=== PATIENT | female | born 1945 | race Caucasian/White ===

== ENCOUNTER → 2016-09-19 16:17 | Outpatient (CLI) | payer MEDICARE, OTHER ==
[2014-05-24 22:53] VITALS: BMI 28.4
[~2016-09-19 16:17] MED LIST: AMBIEN CR12.5 MG/BO PO; AMBIEN5 MG PO; CALCIUM 500 + D1 TAB PO; CYMBALTA60 MG PO; ECOTRIN325 MG PO; EZFE 200200 MG PO; HCTZ25 MG PO; MELATONIN 3 MG1 TAB PO; NEURONTIN 300300 MG PO; NORVASC5 MG PO; PLAVIX75 MG PO; PREMPRO 0.3 MG-1 TAB PO; REQUIP0.5 MG PO; TIAZAC/CARDIZE120 MG PO; TYLENOL #4 W/CO1 TAB PO; VITAMIN D31000 UNIT PO
== END | disposition home or self-care (01) ==
LOC: D.MRI 09-18 16:30
DX: M54.5 Low back pain (principal)

== ENCOUNTER 2016-10-06 09:23 | Day surgery (SDC) | payer MEDICARE, OTHER ==
[~2016-10-06] VITALS: Ht 160 cm; Wt 65.8 kg
[~2016-10-06 09:23] MED LIST changes: -CALCIUM 500 + D1 TAB PO; -EZFE 200200 MG PO; -MELATONIN 3 MG1 TAB PO; -TIAZAC/CARDIZE120 MG PO; -TYLENOL #4 W/CO1 TAB PO; -VITAMIN D31000 UNIT PO
[2016-10-06 10:39] LABS: BASOPHILS 0.4 % (0.0-2.0); EOSINOPHILS 2.2 % (0-7); HEMATOCRIT 38.4 % (36.0-48.0); HEMOGLOBIN 12.7 g/dL (12-16); IMMATURE GRANULOCYTES 0.1 % (0-5); LYMPHOCYTES 24.6 % (15-50); MCH 29.6 pg (26.0-34.0); MCHC 33.1 g/dL (31.0-37.0); MCV 89.5 fL (80.0-100.0); MEAN PLATELET VOLUME 11.6 fL (7.4-10.4); MONOCYTES 8.7 % (2-11); RBC 4.29 10x6/uL (4.00-5.40); RDW 13.1 % (11.5-14.5); WBC 6.7 10x3/uL (4.8-10.8)
[2016-10-06 10:41] LABS: ANION GAP 11.6 mmol/L (8-16); CALCIUM 9.1 mg/dL (8.5-10.1); CARBON DIOXIDE 29.6 mmol/L (21.0-32.0); CREATININE - SERUM 0.9 mg/dL (0.6-1.3); POTASSIUM - SERUM 4.2 mmol/L (3.5-5.1)
[2016-10-06 10:48] LABS: PLATELET COUNT 195 10x3/uL (130-400)
[2016-10-06] MEDS ORDERED: TIAZAC/CARDIZE120 MG PO (11:07)
[2016-10-06] MEDS ORDERED: TYLENOL #4 W/CO1 TAB PO (11:08)
[2016-10-06] MEDS ORDERED: MELATONIN 3 MG1 TAB PO (11:08)
[2016-10-06] MEDS ORDERED: EZFE 200200 MG PO (11:09)
[2016-10-06] MEDS ORDERED: CALCIUM 500 + D1 TAB PO (11:09)
[2016-10-06] MEDS ORDERED: VITAMIN D31000 UNIT PO (11:10)
[2016-10-06 11:45] VITALS: BP 139/68; Ht 160 cm; Wt 65.8 kg
--- NOTE | 2016-10-06 11:56 | NUR ---
1100--DR HENDERSON AT BEDSIDE, MRI AND H&P REVIEWED, NEW ORDER RECIEVED. SAGE RN
[2016-10-06 12:03] LABS: APPEARANCE CLOUDY (CLEAR); BILIRUBIN NEGATIVE (NEGATIVE); COLOR YELLOW (YELLOW); GLUCOSE NEGATIVE (NEGATIVE); KETONE NEGATIVE (NEGATIVE); NITRITE POSITIVE (NEGATIVE); PROTEIN NEGATIVE (NEGATIVE); SPECIFIC GRAVITY 1.015 (1.005-1.020); UROBILINOGEN NORMAL (NORMAL)
[2016-10-06 12:04] LABS: LEUKOCYTE ESTERASE 1+ (NEGATIVE)
[2016-10-06 12:05] LABS: BACTERIA MANY /hpf (NONE SEEN); EPITHELIAL CELLS 0-5 /hpf (0-5); MUCUS <1+ /lpf (NONE SEEN)
--- NOTE | 2016-10-06 15:15 | NUR ---
PATIENT POSITIONED ON GEL ROLLS ALL AREAS CHECKED FOR ANY IMPINGEMENT HEAD IN PRONE PILLOW DEVICE, SAFETY MEASURES TAKEN PRESSURE POINTS PADDED AND SECURED, PILLOWS UNDER LEGS AND FEET, ROSALIORJIM.
--- NOTE | 2016-10-06 16:07 | NUR ---
NO NUMBNESS OR TINGLING IN LOWER EXTREMETIES EQUAL STRENGTH BILATERALLY
--- NOTE | 2016-11-03 10:57 | OP ---
PATIENT NAME: MATIAS CRANDALL MEDICAL RECORD: [id number] :43 LOCATION:[facility] ADMISSION DATE: SURGEON: ISAAC HENDERSON MD DATE OF OPERATION: 10/06/2016 DIAGNOSIS: L4-L5 left nerve root compression secondary to facet hypertrophy. SURGEON: Isaac Henderson MD ESTIMATED BLOOD LOSS: 50 cc. PROCEDURE: L4-L5 left laminotomy and foraminotomy plus discectomy. SUMMARY: The patient was taken to the operating room and after an adequate level of general anesthetic, was prepped and draped in the usual aseptic manner. An incision was made to the left of the spinous processes of L4-L5 with a 10 blade after infiltrating with 1:400,000 epinephrine and 0.5% lidocaine. Dissection was carried out down to the lumbodorsal fascia. Further dissection was carried out with Metzenbaum scissors down to the interlaminar space on the left. METRx operating channel was introduced over the interlaminar space. Using a 1.8 cm operating channel and attaching the 5 cm long channel to a retractor martinez attached to the operating table. Following this, the medial aspect of the facet joint was exposed after removing some soft tissue deep with the pituitary and then a Midas Oral drill was used to remove the medial aspect of the facet joint. This exposed the ligamentum flavum, which was further exposed by removing the lamina from L4 and L5 on the left and then splitting the ligamentum flavum and removing it, exposing the neural involvement. The exiting nerve root was compressed in the neural foramen, therefore Kerrison punch was used to decompress the nerve root. Dissection was then carried out beneath the exiting and traversing nerve root and a herniated disc fragment was identified beneath the posterior longitudinal ligament. An incision was made in the ligament and then disc material was removed piecemeal thoroughly further decompressing the spinal canal eventually. When this was completed, the wound was irrigated with an antibiotic solution and then closure was carried out with 2-0 Dexon on the fascia, 3-0 Dexon on the subcutaneous tissue and a subcuticular stitch with 4-0 Dexon on the skin. The patient tolerated the procedure well and was taken to recovery in stable condition. TRANSINT:[id number] Voice Confirmation ID: [id number] DOCUMENT ID: [id number] ISAAC HENDERSON MD at 1057 CC: [id number] DICTATION DATE: 10/09/16 0745 FIBER PRODUCT CUTTING MACHINE OPERATOR: 10/09/16 1336 [facility] 10/06/16 [place] [place] [address]
== END 2016-10-06 18:20 | disposition home or self-care (01) ==
LOC: D.OPS 09:23 → D.PAN 12:00 → D.OPS 12:00
PROVIDERS: Neurological Surgery
DX: G54.4 Lumbosacral root disorders, not elsewhere classified (principal); M79.605 Pain in left leg; M48.06 Spinal stenosis, lumbar region; I25.10 Atherosclerotic heart disease of native coronary artery without angina pectoris; I10 Essential (primary) hypertension; Z95.5 Presence of coronary angioplasty implant and graft

== ENCOUNTER 2017-01-20 08:29 | Outpatient (CLI) | payer MEDICARE, OTHER ==
[2016-10-06 11:45] VITALS: BMI 25.7
[~2017-01-20 08:29] MED LIST changes: +CALCIUM 500 + D1 TAB PO; +EZFE 200200 MG PO; +MELATONIN 3 MG1 TAB PO; +TIAZAC/CARDIZE120 MG PO; +TYLENOL #4 W/CO1 TAB PO; +VITAMIN D31000 UNIT PO
== END 2017-01-20 11:17 ==
LOC: D.MAMMO 08:29
DX: Z12.31 Encounter for screening mammogram for malignant neoplasm of breast (principal)

== ENCOUNTER → 2017-02-13 08:31 | Outpatient (CLI) | payer MEDICARE, OTHER ==
[2016-10-06 11:45] VITALS: BMI 25.7
== END | disposition home or self-care (01) ==
LOC: D.MRI 08:00
DX: M54.12 Radiculopathy, cervical region (principal)

== ENCOUNTER 2017-04-07 23:13 | Observation (INO) | payer MEDICARE, OTHER ==
[~2017-04-07] VITALS: Ht 160 cm; Wt 68.2 kg
--- NOTE | ~2017-04-07 | HEMODYNAMI ---
PATIENT:MATIAS CRANDALL MEDICAL RECORD: [id number] : 43 LOCATION:[facility] [address] [id number] ADMISSION DATE: 04/08/17 Generatedon:04/08/201711:41 Patient name: MATIAS CRANDALL Patient #: [id number] SSN: : 1945 Date of study: 04/08/2017 Page: Of Hemodynamic Procedure Report Patient Data Patient Demographics Procedure consent was obtained First Name: MATIAS Gender: Female Last Name: KARLEY : 1945 Middle Initial: M Age: 71 year(s) Patient #: [id number] Race: Unknown Additional ID: [id number] Contact details [address]: [address] [place] [address] TRAIL State: [place] City: [place] Zip code: [address] Past Medical History Allergies: No known allergies Admission Admission Data Admission Date: 04/08/2017 Admission Time: 1:07 Admit Source: Other Room #: D[facility] Lab Results Lab Result Date: 04/07/2017 Lab Result Time: 23:33 Biochemistry Name Units Result Min Max BUN mg/dl 18 --(---*)-- 7 18 Creatinine mg/dl 1.1 --(--*-)-- 0.6 1.3 CBC Name Units Result Min Max Hematocrit % 37.5 *-(----)-- 42 54 Hemoglobin g/dl 12.6 -*(----)-- 13.5 17.5 Procedure Procedure Types Cath Procedure Diagnostic Procedure LHC LHC w/Coronaries Miscellaneous Procedures Moderate Sedation up to 15 minutes Procedure Description Procedure Date Procedure Date: 04/08/2017 Procedure Start Time: 11:31 Procedure End Time: 11:39 Procedure Staff Name Function Nomi Contreras MD Performing Physician Kacy Boateng RT Scrub Adolfo Vallecillo RN Nurse Fredrick Sifuentes RT Monitor Procedure Data Cath Procedure Fluoroscopy Diagnostic fluoroscopy Total fluoroscopy Time: 1.3 time: 1.3 min min Diagnostic fluoroscopy Total fluoroscopy dose: 222 dose: 222 mGy mGy Contrast Material Contrast Material Type Amount (ml) Isovue 300 52 Entry Location Entry Primary Successful Side Size Upsize Upsize Entry Closure Marinelli ccessful Closure Location (Fr) 1 (Fr) 2 (Fr) Remarks Device Remarks Radial Right 6 Fr Mechanical artery Short Compression Estimated blood loss: 5 ml Diagnostic catheters Device Type Used For End Catheter Placement Diagnostic Terumo 5Fr Procedure Glasgow 110cm catheter Procedure Complications No complications Procedure Medications Medication Administration Route Dosage Oxygen NC 2 l/min Heparin Flush Bag added to field 2 bags (1000units/500ml NS) 0.9% NaCl I.V. 100 ml/hr Radial Cocktail added to field 1 syringe (Verapomil 2mg/Nitro 400mcg/Heparin 1500units) Fentanyl I.V. 50 mcg Versed I.V. 1 mg Fentanyl I.V. 50 mcg Versed I.V. 1 mg Fentanyl I.V. 50 mcg Fentanyl I.V. 50 mcg Radial Cocktail I.A. 1 syringe (Verapomil 2mg/Nitro 400mcg/Heparin 1500units) Hemodynamics Rest HGB: 12.6 (g/dl) Heart Rate: 78 (bpm) Snapshots Pre Cath Intra NCS Post Cath Vital Signs Time Heart Resp SPO2 NIBP (mmHg) Rhythm Pain Sedation Rate (ipm) (%) Status Level (bpm) 11:05:25 75 17 98 151/75(116) NSR 0 (11) 10(A) , No pain 11:09:43 86 18 97 159/82(128) NSR 0 (11) 10(A) , No pain 11:13:59 77 18 98 153/81(116) NSR 0 (11) 10(A) , No pain 11:18:21 77 17 98 153/77(120) NSR 0 (11) 10(A) , No pain 11:22:37 76 18 97 147/75(112) NSR 0 (11) 10(A) , No pain 11:26:51 77 17 98 144/83(110) NSR 0 (11) 10(A) , No pain 11:31:05 73 19 98 132/78(123) NSR 0 (11) 9(A) , No pain 11:35:17 95 17 97 136/79(122) NSR 0 (11) 9(A) , No pain 11:38:56 93 10 98 153/82(125) NSR 0 (11) 10(A) , No pain Medications Time Medication Route Dose Verified Delivered Reason Notes Effectiveness by by 11:06:16 Oxygen NC 2 l/min Adolfo Mata Per Avel Vallecillo RN physician RN 11:06:56 Heparin Flush added 2 bags Adolfo Mata used for Bag to Avel Vallecillo RN procedure (1000units/500ml field RN NS) 11:07:14 0.9% NaCl I.V. 100 Adolfo Adolfo Per ml/hr Avel Vallecillo RN physician RN 11:22:46 Radial Cocktail added 1 Adolfo Mata used for (Verapomil to syringe Avel Vallecillo RN procedure 2mg/Nitro field RN 400mcg/Heparin 1500units) 11:26:58 Fentanyl I.V. 50 mcg Adolfo Mata for sedation Avel Vallecillo RN RN 11:27:06 Versed I.V. 1 mg Adolfo Mata for sedation Avel Vallecillo RN RN 11:29:36 Fentanyl I.V. 50 mcg Adolfo Mata for sedation Avel Vallecillo RN RN 11:29:43 Versed I.V. 1 mg Adolfo Mata for sedation Avel Vallecillo RN RN 11:31:36 Fentanyl I.V. 50 mcg Adolfo Mata for sedation Avel Vallecillo RN RN 11:31:56 Radial Cocktail I.A. 1 Adolfo Eliserey for (Verapomil syringe Avel Contreras MD vasodilation 2mg/Nitro RN 400mcg/Heparin 1500units) 11:33:04 Fentanyl I.V. 50 mcg Adolfo Mata for sedation Avel Vallecillo RN hydraulic corrugating machine operator Log Time Note 10:45:36 Fredrick Sifuentes RT(R) sent for patient. Start room use. 11:04:11 Vital chart was started 11:04:17 Informed consent obtained and on chart 11:04:21 Admit Source: Other 11:04:34 Diagnostic Cath status Elective 11:04:43 Time tracking: Regular hours 11:04:46 Plan of Care:Hemodynamics will remain stable., Cardiac rhythm will remain stable., Comfort level will be maintained., Respiratory function will remain adequate., Patient/ family verbilizes understanding of procedure., Procedure tolerated without complication., Recovers from procedure without complications.. 11:04:50 Patient received from Med II to CCL 2 Alert and oriented. Tansferred to table in Supine position. 11:04:51 Warm blankets applied, and rupali hugger turned on for patient comfort. 11:04:51 Correct patient and procedure confirmed by team. 11:04:52 ECG and BP/O2 sat monitors applied to patient. 11:04:55 Baseline sample Acquired. 11:04:58 Rhythm: sinus rhythm 11:05:04 H&P Date Dictated: 04/07/2017 Within 30 days and on chart.. 11:05:05 Pre-procedure instructions explained to patient. 11:05:05 Pre-op teaching completed and patient verbalized understanding. 11:05:06 Family in patients room. 11:05:08 Patient NPO since Midnight. 11:05:11 Patient allergic to No known allergies 11:05:13 Is the patient allergic to Iodine/contrast media? No. 11:05:15 Is patient on blood thinner?Yes 11:05:17 ACC The patient was administered the following blood thiners within the last 24 hours: ACCPlavix 11:05:19 Patient diabetic? No. 11:05:21 Previous problem with sedation/anesthesia? No ? 11:05:22 Snore? No 11:05:23 Sleep apnea? No 11:05:24 Deviated septum? No 11:05:24 Opens mouth fully? Yes 11:05:25 Sticks out tongue? Yes 11:05:26 Airway obstruction? No ? 11:05:29 Dentures? Yes In tight 11:05:31 Modified Norman's test Ulnar < 7 seconds 11:05:33 Patient pain scale 0/10 ?. 11:05:38 IV patent on arrival in left hand with 0.9% NaCl at O. 11:06:16 Oxygen 2 l/min NC was administered by Adolfo Vallecillo RN; Per physician; 11:06:56 Heparin Flush Bag (1000units/500ml NS) 2 bags added to field was administered by Adolfo Vallecillo RN; used for procedure; 11:07:14 0.9% NaCl 100 ml/hr I.V. was administered by Adolfo Vallecillo RN; Per physician; 11::43 Lab Result : BUN 18 mg/dl 11::43 Lab Result : Creatinine 1.1 mg/dl 11::43 Lab Result : Hemoglobin 12.6 g/dl ::43 Lab Result : Hematocrit 37.5 % 11::46 Lab results completed and on chart. 11:11:48 Right Radial & Right Groin area was prepped with chlora-prep and draped in sterile fashion 11::49 Alarms reviewed by R. N. 11::49 Sharps counted by scrub and verified by R.N. 11:11:53 Use device set Radial Dx 11:11:54 Acist Manifold opened to sterile field. 11:11:55 Acist Hand Control opened to sterile field. 11:11:56 Acist Syringe opened to sterile field. 11:11:56 Medline Cath Pack opened to sterile field. 11:11:57 Bag Decanter opened to sterile field. 11:11:57 Terumo 6Fr Slender Glidesheath opened to sterile field. 11:11:58 St Garland 260cm J .035 wire opened to sterile field. 11:11:58 Tegaderm 4 x 4 opened to sterile field. 11:21:40 Baseline sample Acquired. 11::32 Zero performed for pressure channel P1 11::46 Radial Cocktail (Verapomil 2mg/Nitro 400mcg/Heparin 1500units) 1 syringe added to field was administered by Adolfo Vallecillo RN; used for procedure; 11:24:26 MBrace Wrist Support opened to sterile field. 11:26:31 Physician arrived 11::31 --------ALL STOP TIME OUT------ 11::32 Final Timeout: patient, procedure, and site verified with staff and physician. All members of the team are in agreement. 11::34 Right Radial & Right Groin site verified by team. 11::36 Physical assessment completed. ASA score P 2 - A patient with mild systemic disease as per Nomi Contreras MD. 11:26:38 Sedation plan: IV Moderate Sedation Versed, Fentanyl 11::58 Fentanyl 50 mcg I.V. was administered by Adolfo Vallecillo RN; for sedation; 11:27:06 Versed 1 mg I.V. was administered by Adolfo Vallecillo RN; for sedation; :36 Fentanyl 50 mcg I.V. was administered by Adolfo Vallecillo RN; for sedation; 11::43 Versed 1 mg I.V. was administered by Adolfo Vallecillo RN; for sedation; ::36 Fentanyl 50 mcg I.V. was administered by Adolfo Vallecillo RN; for sedation; : Procedure started. : Full Disclosure recording started 11::45 Local anesthetic to right radial artery with Lidocaine 2% by Nomi Contreras MD.INITIAL ACCESS ONLY 11::54 A 6 Fr Short sheath was inserted into the Right Radial artery 11::56 Radial Cocktail (Verapomil 2mg/Nitro 400mcg/Heparin 1500units) 1 syringe I.A. was administered by Nomi Contreras MD; for vasodilation; 11::04 Fentanyl 50 mcg I.V. was administered by Adolfo Vallecillo RN; for sedation; 11::44 A Diagnostic GTIumo 5Fr Glasgow 110cm catheter was advanced over the wire and used for Procedure. 11:33:46 LV gram done using ALVES 11::49 Injector settings: Ml/sec: 5, Volume: 15, 11:33:56 EF : 50 % 11:34:12 LCA angiography performed. 11:35:17 RCA angiography performed. 11:35:44 Catheter removed. 11:35:49 Terumo TR Band Standard opened to sterile field. 11:35:56 Sheath removed intact; hemostasis achieved with Mechanical Compression to the Right Radial artery. 11:35:57 Procedure ended.(Physican Out) 11:36:02 Fluoroscopy time 01.30 minutes. 11:36:06 Flurop Dose total: 222 11:36:06 Fluoroscopy dose: 222 mGy 11:36:08 Contrast amount:Isovue 300 52ml. 11:37:23 Sharps counted by scrub and verified by R.N. 11:37:51 TR band inflated with 10cc of air. 11:37:52 Insertion/operative site no bleeding no hematoma. 11:37:59 Post right radial artery:stable, soft, clean and dry 11:38:01 Post Procedure Pulses reassessed and unchanged 11:38:03 Post-procedure physical assessment completed. ASA score P 2 - A patient with mild systemic disease as per Nomi Contreras MD. 11:38:04 Post procedure rhythm: unchanged. 11:38:06 Post procedure instruction explained to patient.Patient verbalizes understanding. 11:38:09 Estimated blood loss: 5 ml 11:38:17 Patient needs reinforcement of post procedure teaching. 11:38:27 Procedure type changed to Cath procedure, Diagnostic procedure, LHC, LHC w/Coronaries, Miscellaneous Procedures, Moderate Sedation up to 15 minutes 11:39:29 Procedure Complication : No complications 11:39:30 Vital chart was stopped 11:39:30 See physician's report for complete and final results. 11:39:32 Report given to PCU. 11:39:35 Patient transfered to PCU with Stretcher. 11:39:37 Procedure ended. 11:39:37 Full Disclosure recording stopped 11:39:40 End room use (Document Last) Device Usage Item Name Manufacture Quantity Catalog Hospital Part Current Minimal Lot# / Number Charge Number Stock Stock Serial# Code Acist Acist 1 [id number] [id number] 026368 070308 5 Manifold [employer] Inc Acist Hand Acist 1 24135 486918 013489 672139 5 Control [employer] Inc Acist Acist 1 39636 933706 894604 783509 20 Syringe Medical Systems Inc Medline Cardinal 1 [id number] 50149 099339 5 Cath Pack Health Bag Microtek 1 2002S 009498 13905 494153 5 Decanter Medical Inc. Terumo 6Fr Terumo 1 [id number] 469496 140443 259967 [address] St Garland 1 [id number] 416433 226421 016504 30 260cm J .035 wire Tegaderm 4 3M 1 1626W 308409 356421 768559 5 x 4 MBrace Advanced 1 140-0250-00 218011 27007 041590 5 Wrist Vascular Support Dynamics Diagnostic Terumo 1 66-8720 601637 225654 184561 5 Terumo 5Fr Glasgow 110cm catheter Terumo TR Terumo 1 [id number] 387493 710225 708620 40 Band Standard Signature Audit Cades Stage Time Signature Unsigned Intra-Procedure 04/08/2017 Fredrick Sifuentes 11:41:18 AM RT(R) Signatures Monitor : Fredrick Sifuentes RT Signature : Date : Time : [place] [address] [place] [address]
--- NOTE | ~2017-04-07 | HP ---
PATIENT: MATIAS CRANDALL MEDICAL RECORD: [id number] ACCOUNT: [id number] LOCATION:[address] : 43 ADMISSION DATE: 04/08/17 HISTORY AND PHYSICAL EXAMINATION ADMITTING DIAGNOSES: 1. Unstable angina. 2. Coronary artery disease. 3. Previous PTCA stent in 2013. 4. Upcoming back surgery. 5. Chronic back pain. 6. Hypertension. HISTORY OF PRESENT ILLNESS: This is a female who presents with unstable anginal symptomatology times 2 days, just like that of her previous angina. She does have a past history of coronary artery disease, previous PTCA stent in 2013. Her troponin is normal. PHYSICAL EXAMINATION: GENERAL APPEARANCE: Well-nourished, well-developed, appears stated age. Level of distress, comfortable. PSYCHIATRIC: Mental status, alert, normal affect. Orientation, oriented to time, place and person. EYES: Lids and conjunctiva, noninjected. No discharge, no pallor. ENT: Lips, teeth, gums, normal dentition. Oropharynx, no cyanosis, no pallor. NECK: Carotid arteries, bilateral normal upstroke, no bruits, no thrills. JUGULAR VEINS: No jugular venous pressure or distention. CERVICAL LYMPH NODES: Nontender, nonenlarged. THYROID: Not enlarged. Nontender. No nodules. LUNGS: Respiratory effort, unlabored. CHEST: Normal curvature. No thoracic deformity. No chest wall tenderness. Percussion, resonant. Auscultation, clear. No wheezes, no rales, no rhonchi. CARDIOVASCULAR: Precordial exam, nondisplaced. No heaves or pericardial thrills. Rate and rhythm, regular. Heart sounds, normal S1, normal S2. No S3, no gallop, no rub. Systolic murmur, not heard. Diastolic murmur, not heard. EXTREMITIES: No cyanosis, no edema. Peripheral pulses, full and equal in all extremities, except as noted. No bruits appreciated. ABDOMEN: Soft, nondistended. Normal aorta. No bruit. Nontender. No masses. Liver, nontender, no hepatomegaly. Spleen, nontender, no splenomegaly. MUSCULOSKELETAL: No joint tenderness. No joint swelling. No erythema. NEUROLOGICAL: Normal gait, normal strength, normal tone. SKIN: Warm and dry. REVIEW OF SYSTEMS: The patient reports easy bruising but reports no swollen glands. The patient reports no fever, no night sweats, no significant weight gain, no significant weight loss. No significant exercise tolerance. The patient reports no dry eyes, no irritation, no vision change. Patient reports no difficulty hearing and no ear pain. Patient reports no frequent nose bleeds or nose and sinus problems. Patient reports on arm pain on exertion. No shortness of breath while lying down. No history of heart murmur. Patient reports no cough, no wheezing or coughing up blood. Patient reports no abdominal pain, no vomiting. Normal appetite. No diarrhea and not vomiting blood. No nausea and no constipation. Patient reports no incontinence. No difficulty urinating. No hematuria. No increased frequency. Patient reports no muscle aches. No weakness, no arthralgias, no back pain. No swelling of the HISTORY AND PHYSICAL [id number] MATIAS CRANDALL extremities. Patient reports no abnormal mole, no jaundice, no rashes. Reports no loss of consciousness. No weakness and no numbness. No seizures, dizziness, or headaches. The patient reports no depression, no sleep disturbance, feeling safe in a relationship and no alcohol abuse. Patient reports on fatigue. Reports no runny nose or sinus pressure. No itching, no hives, and no frequent sneezing. OVERALL IMPRESSION: Chest pain compatible with angina, most likely she has recurrent hemodynamically significant coronary artery disease. We will proceed with coronary angiography. Further care depends upon findings of the angiography. TRANSINT:[id number] Voice Confirmation ID: [id number] DOCUMENT ID: [id number] RODOLFO SCOTT MD CC: [id number] DICTATION DATE: 04/08/17 0947 CAR VARNISHER: 04/08/17 1043 [facility] [place] [address] [place] [address]
--- NOTE | ~2017-04-07 | OP ---
PATIENT NAME: MATIAS CRANDALL MEDICAL RECORD: [id number] :43 LOCATION:D.M2 [address].2117 ADMISSION DATE:04/08/17 SURGEON: RODOLFO SCOTT MD DATE OF OPERATION: 04/08/2017 PROCEDURES: 1. Left heart catheterization. 2. Selective coronary angiography. 3. Left ventriculogram. INDICATION: Chest pain compatible with angina. PROCEDURE IN DETAIL: After informed consent was obtained and after detailed explanation of risks, benefits as well as alternative therapies, the patient elected to proceed with angiogram and heart catheterization. The right radial area was prepped and draped in normal sterile fashion. Right radial artery was cannulated via modified Seldinger technique with placement of 6-Luxembourgish sheath. All catheters exchanged through this sheath. FINDINGS: The left ventriculogram was performed in standard 30-degree ALVES view, reveals good cardiac wall motion throughout all segments. Overall ejection fraction estimated 60%. SELECTIVE CORONARY ANGIOGRAPHY: 1. Left main showed no significant angiographic disease. 2. Left anterior descending has previously placed stent. This is widely patent with no significant restenosis. No disease elsewise at the LAD or its branches. 3. Left circumflex has mild irregularities, but no flow-limiting stenosis. 4. Right coronary has mild irregularities, but no flow-limiting stenosis. OVERALL IMPRESSION: No significant restenosis of the previously placed stent in the LAD. No disease elsewise. Continue medical management of the coronary artery disease and cardiac risk factors. TRANSINT:[id number] Voice Confirmation ID: [id number] DOCUMENT ID: [id number] RODOLFO SCOTT MD CC: [id number] DICTATION DATE: 04/08/17 1143 FIREBREAK CUTTER: 04/08/17 1453 DIS IN 04/08/17 [facility] [address] [place] [id number]
[2017-04-08 00:07] LABS: ALBUMIN 3.5 g/dL (3.4-5.0); ALKALINE PHOSPHATASE 88 U/L (46-116); ALT (SGPT) 26 U/L (10-68); BASOPHILS 0.3 % (0-2); BILIRUBIN - TOTAL 0.28 mg/dL (0.2-1.3); CALC OSMOLALITY 280 mosm/kg (275-300); CALCIUM 9.2 mg/dL (8.5-10.1); CARBON DIOXIDE 29.4 mmol/L (21.0-32.0); CHLORIDE - SERUM 104 mmol/L (98-107); CREATININE - SERUM 1.1 mg/dL (0.6-1.3); GLUCOSE 93 mg/dL (74-106); HEMATOCRIT 37.5 % (36.0-48.0); HEMOGLOBIN 12.6 g/dL (12-16); IMMATURE GRANULOCYTES 0.3 % (0-5); LYMPHOCYTES 28.6 % (15-50); MCH 30.6 pg (26.0-34.0); MCHC 33.6 g/dL (31.0-37.0); MEAN PLATELET VOLUME 10.7 fL (7.4-10.4); MONOCYTES 11.8 % (2-11); PROTEIN - SERUM 6.9 g/dL (6.4-8.2); RBC 4.12 10x6/uL (4.00-5.40); RDW 13.2 % (11.5-14.5); SODIUM 140 mmol/L (136-145); UREA NITROGEN 18 mg/dL (7-18); WBC 9.7 10x3/uL (4.8-10.8); eGFR NON AFRICAN AMERICAN 52 mL/min (90-120)
[2017-04-08 00:08] LABS: PLATELET COUNT 238 10x3/uL (130-400)
[2017-04-08 00:18] LABS: CHOL - HDL RATIO 2.5 ratio (2.3-4.1); CHOLESTEROL, TOTAL 159 mg/dL (0-200); CKMB 0.9 U/L (0.0-3.6); CREATINE KINASE 56 UL (21-215); HDL CHOLESTEROL 65 mg/dL (32-96); LDL CHOLESTEROL 69 mg/dL (0-100); LDL-HDL RATIO 1.1 ratio (1.5-3.5); TRIGLYCERIDE 125 mg/dL (30-200)
[2017-04-08 00:20] LABS: TROPONIN-I < 0.017 ng/mL (0.000-0.060)
[2017-04-08 04:55] VITALS: BP 148/72; Ht 160 cm; Wt 68.2 kg
[2017-04-08 05:58] LABS: CREATINE KINASE 54 UL (21-215); TROPONIN-I < 0.017 ng/mL (0.000-0.060)
[2017-04-08 08:00] VITALS: BP 129/61
--- NOTE | 2017-04-08 10:52 | NUR ---
PRE-OPS GIVEN. TO MANAGER MED SURG BY BED.
--- NOTE | 2017-04-08 12:03 | NUR ---
BACK FROM CHAR BELT OPERATOR. VS WNL. RIGHT WRIST STABLE WITH TR BAND INTACT. WILL MONITOR.
--- NOTE | 2017-04-08 13:50 | NUR ---
TR BAND DCD WITHOUT BLEEDING OR HEMATMOA NOTED.
--- NOTE | 2017-04-08 14:29 | NUR ---
IV AND TELEMETRY DCD. DC PLANS GIVEN. UNDERSTANDING VOICED. ESCORTED TO CAR BY W/C.
== END 2017-04-08 14:30 | disposition home or self-care (01) ==
LOC: D.ER 23:13 → D.M2 04-08 01:07 → OBSVTIME 04-08 01:07 → D.M2 04-08 01:07
PROVIDERS: Family Medicine; ADMIT Emergency Medicine
DX: I25.110 Atherosclerotic heart disease of native coronary artery with unstable angina pectoris (principal); Z95.5 Presence of coronary angioplasty implant and graft; I10 Essential (primary) hypertension; G89.29 Other chronic pain; M54.9 Dorsalgia, unspecified

== ENCOUNTER → 2017-07-06 14:37 | Outpatient (CLI) | payer MEDICARE, OTHER ==
[2017-04-08 04:55] VITALS: BMI 26.6
== END | disposition home or self-care (01) ==
LOC: D.RAD 14:37
DX: J32.9 Chronic sinusitis, unspecified (principal)

== ENCOUNTER → 2018-05-05 11:09 | Outpatient (CLI) | payer MEDICARE, OTHER ==
[2017-04-08 04:55] VITALS: BMI 26.6
== END | disposition home or self-care (01) ==
LOC: D.US 11:09
DX: I70.219 Atherosclerosis of native arteries of extremities with intermittent claudication, unspecified extremity (principal)

== ENCOUNTER 2018-11-04 18:19 | Outpatient (CLI) | payer MEDICARE, OTHER ==
[2017-04-08 04:55] VITALS: BMI 26.6
== END 2018-11-04 18:21 | disposition home or self-care (01) ==
LOC: D.MAMMO 18:19
PROVIDERS: ATTEND Emergency Medicine
DX: Z12.31 Encounter for screening mammogram for malignant neoplasm of breast (principal)

== ENCOUNTER 2018-11-29 15:00 | Outpatient (CLI) | payer MEDICARE, OTHER ==
[2017-04-08 04:55] VITALS: BMI 26.6
== END 2018-11-29 16:00 | disposition home or self-care (01) ==
LOC: D.MAMMO 15:00
PROVIDERS: ATTEND Emergency Medicine
DX: R92.8 Other abnormal and inconclusive findings on diagnostic imaging of breast (principal)

== ENCOUNTER 2019-06-02 10:00 | Outpatient (CLI) | payer MEDICARE, OTHER ==
[2017-04-08 04:55] VITALS: BMI 26.6
== END 2019-06-02 11:00 | disposition home or self-care (01) ==
LOC: D.MAMMO 10:00
PROVIDERS: ATTEND Emergency Medicine
DX: R92.8 Other abnormal and inconclusive findings on diagnostic imaging of breast (principal)

== ENCOUNTER → 2019-11-08 18:33 | Outpatient (CLI) | payer MEDICARE, OTHER ==
[2017-04-08 04:55] VITALS: BMI 26.6
== END | disposition home or self-care (01) ==
LOC: D.MAMMO 10:45
PROVIDERS: ATTEND Emergency Medicine
DX: Z12.31 Encounter for screening mammogram for malignant neoplasm of breast (principal)

== ENCOUNTER 2019-11-14 10:00 | Outpatient (CLI) | payer MEDICARE, OTHER ==
[2017-04-08 04:55] VITALS: BMI 26.6
== END 2019-11-14 10:51 | disposition home or self-care (01) ==
LOC: D.MAMMO 10:00
PROVIDERS: ATTEND Emergency Medicine
DX: R92.8 Other abnormal and inconclusive findings on diagnostic imaging of breast (principal)

== ENCOUNTER → 2019-11-18 08:32 | Outpatient (CLI) | payer MEDICARE, OTHER ==
[2017-04-08 04:55] VITALS: BMI 26.6
== END | disposition home or self-care (01) ==
LOC: D.US 08:32
PROVIDERS: ATTEND Emergency Medicine
DX: R92.8 Other abnormal and inconclusive findings on diagnostic imaging of breast (principal)

== ENCOUNTER 2019-11-29 06:10 | Day surgery (SDC) | payer MEDICARE, OTHER ==
[2019-11-28 10:58] LABS: BASOPHILS 0.2 % (0-2); EOSINOPHILS 4.5 % (0-7); HEMOGLOBIN 13.4 g/dL (12-16); IMMATURE GRANULOCYTES 0.1 % (0-5); LYMPHOCYTES 19.7 % (15-50); MCH 29.8 pg (26.0-34.0); MCHC 31.9 g/dL (31.0-37.0); MCV 93.5 fL (80.0-100.0); MEAN PLATELET VOLUME 10.1 fL (7.4-10.4); MONOCYTES 8.1 % (2-11); NEUTROPHILS 67.4 % (40-80); PLATELET COUNT 217 10x3/uL (130-400); RBC 4.49 10x6/uL (4.00-5.40); RDW 13.2 % (11.5-14.5); WBC 8.2 10x3/uL (4.8-10.8)
[2019-11-28 11:05] LABS: ANION GAP 10.7 mmol/L (8-16); CALCIUM 9.3 mg/dL (8.5-10.1); CARBON DIOXIDE 31.3 mmol/L (21.0-32.0); CREATININE - SERUM 1.2 mg/dL (0.6-1.3)
[~2019-11-29] VITALS: Ht 160 cm; Wt 72.6 kg
--- NOTE | ~2019-11-29 | OP ---
PATIENT NAME: MATIAS CRANDALL MEDICAL RECORD: [id number] :44 LOCATION:[facility] ADMISSION DATE: SURGEON: VINAY LARA MD DATE OF OPERATION: 11/29/2019 PREOPERATIVE DIAGNOSES: 1. Invasive lobular carcinoma of the left breast. 2. Coronary artery disease. POSTOPERATIVE DIAGNOSES: 1. Invasive lobular carcinoma of the left breast. 2. Coronary artery disease. PROCEDURE IN DETAIL: Needle localization, left lumpectomy with left axillary sentinel lymph node biopsy. SURGEON: Vinay Lara MD REPORT OF PROCEDURE: The patient's left breast and axilla were prepped and draped in sterile fashion. Preoperatively, the patient had undergone lymphoscintigraphy, which showed uptake in the left axilla and also stereotactic needle localization of the left breast. A semicircular incision was made on the inferior aspect of the patient's nipple areolar complex. Electrocautery was used to dissect through the subcutaneous tissues until we encountered the wire. The wire was eviscerated through the wound. We then cored out a large section of the fatty tissue around the wire. Once this was completely excised, it was marked appropriately and sent off to mammography, where the wire was noted to be present intact, and the specimen and the previous biopsy clip was present. The wound was inspected and any bleeding that was found was treated with electrocautery or with a [id number] 3-0 Vicryls. The subcutaneous tissues were reapproximated with interrupted 3-0 Vicryls. We then approached the left axilla. A transverse incision was made in the superior aspect of the axilla and electrocautery was used to dissect through the subcutaneous tissue through the axillary fascia. Once inside the axilla, we found 2 separate nodules with high readings; the one nodule had a reading of 13,000, the second nodule had a reading of 6000. These 2 nodules were removed and the lymphatics were clipped off with small clips. Both of these were sent off for permanent specimen. The wound was then irrigated out with normal saline and inspection showed no other lymph nodes, which required removal. We did not feel any grossly abnormally enlarged lymph nodes throughout the axilla. At this point, we irrigated out the wound with sterile water. The subcutaneous tissues were reapproximated with interrupted 3-0 Vicryl. We infused a total of 20 mL of 0.25% Marcaine with epinephrine to all the tissues and the nipple areolar area in the left axilla. The skin incisions were closed with running subcutaneous 5-0 Monocryl and dressed appropriately. COMPLICATIONS: None. CONDITION: Stable. ANESTHESIA: General endotracheal and local. BLOOD LOSS: 30 mL. TRANSINT:[id number] Voice Confirmation ID: [id number] DOCUMENT ID: [id number] OPERATIVE REPORT [id number] MATIAS CRANDALL CHRISTIAN MD CC: ROMAINE DENIS [id number] DICTATION DATE: 11/29/19 1445 ORDER PLANNER: 11/29/19 1716 REG [facility] [address] [id number]
[~2019-11-29 06:10] MED LIST changes: +BAYER CHEWABLE81 MG PO
[2019-11-29] MEDS ORDERED: VOLTAREN100 GM (06:58)
[2019-11-29] MEDS ORDERED: IPRATROPIUM BRO30 M1 NASAL (07:00)
[2019-11-29] MEDS ORDERED: FUROSEMIDE20 MG PO (07:02)
[2019-11-29] MEDS ORDERED: levocetirizine (07:03)
[2019-11-29] MEDS ORDERED: RETAINE MGD EY1 EACH EACH EYE (07:03)
[2019-11-29] MEDS ORDERED: vit b12 (07:04)
[2019-11-29] MEDS ORDERED: CELEXA10 MG PO (07:05)
[2019-11-29 07:07] VITALS: BP 114/62; Ht 160 cm; Wt 72.6 kg
--- NOTE | 2019-11-29 11:00 | NUR ---
Patient scheduled for a left breast lymphoscintigraphy. Consent was obtained. Dr. Goode entered the room and a time out was called at 1055. Area was prepped and 550uCi Tc-99m Tilmanocpet was injected subcutaneously in the left breast.
--- NOTE | 2019-11-29 14:31 | NUR ---
UPPER DENTURES SENT IN CUP WITH PATIENT TO PACU-SH
[2019-11-29] MEDS ORDERED: HYDROCODON-ACE1 EA10 PO (14:38)
--- NOTE | 2019-11-29 17:25 | NUR ---
1600 MEDICATED FOR PAIN. 1630 IV REMOVED AND INSTRUCTIONS GIVEN TO PT. PAIN EASING SOME WITH ICE. NO NAUSEA
== END 2019-11-29 16:45 | disposition home or self-care (01) ==
LOC: D.PAN 06:10 → D.MAMMO 08:00 → D.PAN 09:00
PROVIDERS: ATTEND Surgery
DX: C50.612 Malignant neoplasm of axillary tail of left female breast (principal); I25.10 Atherosclerotic heart disease of native coronary artery without angina pectoris

== ENCOUNTER 2019-12-06 05:38 | Day surgery (SDC) | payer MEDICARE, OTHER ==
[2019-12-05 11:56] LABS: BASOPHILS 0.4 % (0-2); EOSINOPHILS 4.4 % (0-7); HEMATOCRIT 40.6 % (36.0-48.0); HEMOGLOBIN 13.1 g/dL (12-16); IMMATURE GRANULOCYTES 0.4 % (0-5); LYMPHOCYTES 15.5 % (15-50); MCHC 32.3 g/dL (31.0-37.0); MCV 93.1 fL (80.0-100.0); MEAN PLATELET VOLUME 10.2 fL (7.4-10.4); MONOCYTES 8.9 % (2-11); NEUTROPHILS 70.4 % (40-80); RBC 4.36 10x6/uL (4.00-5.40); RDW 13.2 % (11.5-14.5); WBC 10.1 10x3/uL (4.8-10.8)
[2019-12-05 12:12] LABS: ANION GAP 13.4 mmol/L (8-16); CALCIUM 9.4 mg/dL (8.5-10.1); CARBON DIOXIDE 29.5 mmol/L (21.0-32.0); CREATININE - SERUM 1.2 mg/dL (0.6-1.3); POTASSIUM - SERUM 3.9 mmol/L (3.5-5.1)
[2019-12-05 12:22] LABS: PLATELET COUNT 269 10x3/uL (130-400)
[2019-12-05 12:30] LABS: APTT 25.8 SECONDS (22.8-39.4); INR 0.95 (0.85-1.17); PROTIME 12.7 SECONDS (11.6-15.0)
[~2019-12-06] VITALS: Ht 160 cm; Wt 76.7 kg
--- NOTE | ~2019-12-06 | OP ---
PATIENT NAME: MATIAS CRANDALL MEDICAL RECORD: [id number] :44 LOCATION:[facility] ADMISSION DATE: SURGEON: VINAY LARA MD DATE OF OPERATION: 12/06/2019 PREOPERATIVE DIAGNOSIS: Left breast invasive lobular carcinoma. POSTOPERATIVE DIAGNOSIS: Left breast invasive lobular carcinoma. PROCEDURE: Reexcision of left chest lumpectomy site with frozen section. SURGEON: Vinay Lara MD REPORT OF PROCEDURE: The patient's left breast was prepped and draped in sterile fashion. A semicircular incision on the inferior aspect of the patient's nipple areolar complex was reopened and we entered a fluid-filled pocket with a small amount of blood clot. This was all removed. I felt around the wound, it did not feel any evidence of any masses, but there was inflammatory changes present from the surgery from the week previously. On the final path report, the patient had a close margin on the posterior margin and a positive margin anteriorly. I took a section of posterior margin getting close to the patient's chest wall and sent this off after marking it appropriately. This was all taken down using electrocautery and at the conclusion of this any bleeding that was found was treated with electrocautery. We then removed a section of the anterior breast tissue coming close to the subcutaneous tissues of the skin. This anterior breast tissue was marked appropriately and sent off for frozen specimen. The new anterior margin actually still had some microscopic atypical cells that were concerning for malignant cells. I discussed this with the pathologist and he recommended more tissue be taken. Due to the fact that it was so close to the skin, I went ahead and just removed a wedge of semicircular skin to the anterior aspect of the inferior breast at around the 5 o'clock to 7 o'clock positions. This section of tissue including the skin was then marked appropriately and sent for permanent specimen. We inspected the area and opened up the skin a little bit on its most medial and lateral aspects to remove any dog earring. The wound was then irrigated out thoroughly with sterile water. Any bleeding was treated with electrocautery. We closed the subcutaneous tissues with multiple interrupted 3-0 Vicryls and the skin was then closed with running subcutaneous 5-0 Monocryl. A 10 mL of 0.25% Marcaine with epinephrine was infused into the surrounding tissues and the wound was dressed appropriately. COMPLICATIONS: None. CONDITION: Stable. ANESTHESIA: General endotracheal and local. BLOOD LOSS: 30 mL. TRANSINT:[id number] Voice Confirmation ID: [id number] DOCUMENT ID: [id number] OPERATIVE REPORT [id number] MATIAS CRANDALL CHRISTIAN MD CC: ROMAINE DENIS and NATO MEAD MD [id number] DICTATION DATE: 12/06/19934 AUTOPSY ASSISTANT: 12/06/19 1000 REG [facility] [address] [id number]
[~2019-12-06 05:38] MED LIST changes: +CELEXA10 MG PO; +FUROSEMIDE20 MG PO; +HYDROCODON-ACE1 EA10 PO; +IPRATROPIUM BRO30 M1 NASAL; +RETAINE MGD EY1 EACH EACH EYE; +VOLTAREN100 GM; +levocetirizine; +vit b12
[2019-12-06 06:29] VITALS: BP 127/63; Ht 160 cm; Wt 76.7 kg
[2019-12-06] MEDS ORDERED: HYDROCODON-ACE1 EA10 PO (09:24)
--- NOTE | 2019-12-06 10:57 | NUR ---
RIGHT HAND PIV DC'D WITH TIP INTACT. PATIENT AMBULATING AROUND ROOM WITHOUT UNSTEADINESS OR DIZZINESS. PATIENT DRESSING IN PERSONAL CLOTHING. DISCHARGE INSTRUCTIONS REVIEWED WITH PATIENT
== END 2019-12-06 11:10 | disposition home or self-care (01) ==
LOC: D.PAN 05:38 → D.OPS 07:30 → D.PAN 11:10
PROVIDERS: Anesthesiology; ATTEND Surgery
DX: C50.812 Malignant neoplasm of overlapping sites of left female breast (principal)

== ENCOUNTER → 2020-11-26 18:01 | Outpatient (CLI) | payer MEDICARE, OTHER | END | disposition home or self-care (01) | LOC: D.MAMMO 11-02 10:30 | PROVIDERS: ATTEND Surgery | DX: Z12.31 Encounter for screening mammogram for malignant neoplasm of breast (principal); C50.912 Malignant neoplasm of unspecified site of left female breast ==